=== PATIENT | male | born 1950 | race Caucasian/White ===

== ENCOUNTER 2018-10-27 06:03 | Day surgery (SDC) | payer OTHER, SELFPAY ==
[2018-10-26 08:48] VITALS: BMI 29.0
[2018-10-27] VITALS (7 sets, daily range): BP systolic 106–158; BP diastolic 61–87; PULSE 64–77; RESP 11–16; TEMP 36.2–36.6; O2SAT 95–98; BMI 29.0
[2018-10-27] MEDS: LACTATED RINGERS 1,000 ML 42 ML IV (07:00)
--- NOTE | 2018-10-27 07:40 | PM.PREOP ---
Pre-operative Note Interval Note History & Physical reviewed/Exam performed by Physician: Yes Changes to H&P: No
[2018-10-27] MEDS: CEFAZOLIN 2 GM/100 ML FROZ.PIGGY IV (07:48)
[2018-10-27] MEDS: BUPIVACAINE 0.5% W/ EPI (PF) VIAL 30 ML INJ (08:37)
--- NOTE | 2018-10-27 08:58 | PM.OP.1 ---
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 No sign of a Stener lesion Closure Type: primary Specimen(s): none sent Applied: implant(s) Estimated Blood Loss (mL): 0 Blood products transfused: none Tourniquet time (min): 30 Procedure in detail: Service patient was met in the holding area. Operative site was signed and witnessed by the OR staff. The surgery once again discussed with patient and any remaining questions they had were answered fully. Patient was taken back to the operating theater and placed on the operating table in the supine position. Great care taken to ensure that all bony prominences were properly padded. A well-padded tourniquet was placed up along the upper extremity. A timeout was performed to verify patient's name, procedure, and operative site. The upper extremity was then prepped and draped in the normal sterile fashion. An Esmarch was used to exsanguinate the limb and the tourniquet was turned up to 250 mm mercury. A curvilinear incision was made center over the ulnar aspect of the MCP joint. A 15 blade was used to incise through skin and fascial tissue. Adson pickups and tenotomy scissors were used to dissect down visualizing the ulnar aspect of the MCP joint.The abductor aponeurosis was identified and a curved hemostat was placed underneath it. A 15 blade was used to split the aponeurosis. This gave us good visualization of the ulnar collateral ligament. It has been torn from the proximal phalanx. The ligament had scarred down to the metacarpal. 15 blade was used to free the ligament in order to increase its excursion. Next, 2 guidewires were placed. One in the metacarpal 1 in the proximal phalanx. Position of these guidewires were checked with C-arm. Once we are satisfied with the positioning of the guidewires they were drilled with a 3 0 cannulated drill bit. Next labral tape was tenodesed in 2 the drill holes providing a secure fixation of the ulnar aspect of the joint. This was reinforced with the remaining ulnar collateral ligament while the labral tape and ulnar collateral ligament were being ripped reconstructed and repaired the joint was reduced to provide a secure fixation and tightness of the ulnar collateral ligament. Next the aponeurosis was repaired and the wound was copiously irrigated. The rest of the wound was closed in a layered fashion. A thumb spica splint was placed. The patient was taken to the PACU in stable condition. Complications: none Condition: stable Disposition: PACU Plan for aftercare: Splint will be on for 2 weeks. After 2 weeks patient can be placed in a removable brace that just immobilize the MCP joint. Okay to come out of that brace to work on range of motion of the thumb as well as wrist.
[2018-10-27] MEDS: HYDROCODONE/ACET 5/325 TABLET 1 TAB PO (09:25)
== END 2018-10-27 09:45 | disposition home or self-care (01) ==
PROVIDERS: PCP Family Medicine; Visit Provider Orthopaedic Surgery
PROC: (CPT 26540; principal; 2018-10-27 07:45)
DX: S53.32XA Traumatic rupture of left ulnar collateral ligament, initial encounter (principal); M18.12 Unilateral primary osteoarthritis of first carpometacarpal joint, left hand; W22.8XXA Striking against or struck by other objects, initial encounter
CPT/HCPCS: 26541; J0171; J0690; J1100; J2405; J2704; J3010